=== PATIENT | female | born 1950 | race Caucasian/White ===

== ENCOUNTER 2018-02-16 06:52 | Emergency (ER) | payer OTHER ==
[~2018-02-16] VITALS: Ht 170.2 cm; Wt 88.9 kg
[2018-02-16] MEDS ORDERED: XANAX 0.5 MG0.5 MG PO (07:20)
[2018-02-16] MEDS ORDERED: CHLORTHALIDONE25 MG PO (07:20)
[2018-02-16] MEDS ORDERED: DOXEPIN 75 MG C75 MG PO (07:21)
[2018-02-16] MEDS ORDERED: LIPITOR40 MG PO (07:21)
[2018-02-16] MEDS ORDERED: ESCITALOPRAM OX20 MG PO (07:21)
[2018-02-16] MEDS ORDERED: SYNTHROID100 MC1 PO (07:22)
[2018-02-16 07:32] LABS: URINE BLOOD 3+ (Negative); URINE CLARITY CLOUDY; URINE COLOR RED; URINE GLUCOSE-RANDOM 1+ (Negative); URINE KETONES TRACE (Negative); URINE LEUKOCYTES-REFLEX TRACE (Negative); URINE PROTEIN 1+ (Negative); URINE SPECIFIC GRAVITY 1.025 (1.005-1.030); URINE UROBILINOGEN 0.2 E.U./dl (0.2-1.0)
[2018-02-16 07:34] LABS: ICTOTEST (BILI CONFIRMATORY) Negative (Negative); URINE BILIRUBIN 2+ (Negative); URINE NITRITE-REFLEX POSITIVE (Negative)
[2018-02-16 07:38] LABS: BACTERIA-REFLEX 1-9 Few /HPF (None Seen); CASTS None Seen /LPF (None Seen); MUCUS 0-3 Light strn/LPF (None Seen); SQUAMOUS 0-3 Few /LPF (0-3); URINE RBC >20 Many /HPF (0-2); URINE WBC-REFLEX 0-5 Rare /HPF (0-5)
[2018-02-16 07:39] LABS: CRYSTALS None Seen /LPF (None Seen)
[2018-02-16 07:39] LABS: ABSOLUTE BASOPHILS 0.1 thou/uL (0.0-0.2); ABSOLUTE LYMPHOCYTES 1.2 thou/uL (0.8-5.3); ABSOLUTE MONOCYTES 0.5 thou/uL (0.0-1.2); ABSOLUTE NEUTROPHILS 7.6 thou/uL (1.6-8.1); BASOPHILS 0.6 %; EOSINOPHILS 0.1 %; HEMATOCRIT 42.7 % (37.0-47.0); HEMOGLOBIN 13.9 gm/dL (12.0-15.0); LYMPHOCYTES 12.8 %; MCH 28.5 pg (26.0-34.0); MCHC 32.6 g/dL (28.0-37.0); MCV 87.4 fL (80.0-100.0); MONOCYTES 4.8 %; MPV 7.5 fl. (7.2-11.1); NUCLEATED RBCS 0 /100WBC; PLATELET COUNT* 281 thou/uL (150-400); POLYS 81.7 %; RBC 4.89 mil/uL (4.20-5.00); RDW-CV 14.4 % (10.5-14.5); WBC 9.3 thou/uL (4.0-11.0)
[2018-02-16 07:57] LABS: CALCIUM 8.4 mg/dL (8.5-10.1); CREATININE 0.7 mg/dL (0.6-1.3); POTASSIUM 3.4 mmol/L (3.5-5.1)
[2018-02-16 08:00] LABS: ALBUMIN 3.5 g/dL (3.4-5.0); TOTAL BILIRUBIN 0.6 mg/dL (<0.1-1.0); TOTAL PROTEIN 6.7 g/dL (6.4-8.2)
[2018-02-16] MEDS ORDERED: LEVAQUIN 500 M500 MG PO (08:23)
[2018-02-16 09:11] VITALS: BP 121/83
== END 2018-02-16 09:12 | disposition home or self-care (01) ==
LOC: M.ERS 06:52
PROVIDERS: Personal Emergency Response Attendant
DX: N39.0 Urinary tract infection, site not specified (principal); Z90.710 Acquired absence of both cervix and uterus; Z88.6 Allergy status to analgesic agent; Z88.5 Allergy status to narcotic agent; Z88.2 Allergy status to sulfonamides

== ENCOUNTER 2018-03-05 18:01 | Emergency (ER) | payer OTHER ==
[~2018-03-05] VITALS: Ht 170.2 cm; Wt 89.4 kg
[~2018-03-05 18:01] MED LIST: CHLORTHALIDONE25 MG PO; DOXEPIN 75 MG C75 MG PO; ESCITALOPRAM OX20 MG PO; LEVAQUIN 500 M500 MG PO; LIPITOR40 MG PO; SYNTHROID100 MC1 PO; XANAX 0.5 MG0.5 MG PO
[2018-03-05] MEDS ORDERED: XARELTO15 MG PO (18:15)
[2018-03-05 18:24] LABS: ABSOLUTE LYMPHOCYTES 1.5 thou/uL (0.8-5.3); ABSOLUTE MONOCYTES 0.5 thou/uL (0.0-1.2); ABSOLUTE NEUTROPHILS 5.6 thou/uL (1.6-8.1); BASOPHILS 0.5 %; HEMATOCRIT 40.9 % (37.0-47.0); HEMOGLOBIN 13.6 gm/dL (12.0-15.0); LYMPHOCYTES 20.1 %; MCH 28.6 pg (26.0-34.0); MCHC 33.2 g/dL (28.0-37.0); MCV 86.2 fL (80.0-100.0); MONOCYTES 6.1 %; MPV 7.4 fl. (7.2-11.1); NUCLEATED RBCS 0 /100WBC; PLATELET COUNT* 346 thou/uL (150-400); POLYS 73.3 %; RBC 4.75 mil/uL (4.20-5.00); RDW-CV 14.7 % (10.5-14.5); WBC 7.6 thou/uL (4.0-11.0)
[2018-03-05 18:38] LABS: ANION GAP 10 mmol/L (7-16); BUN 6 mg/dL (7-18); CALCIUM 9.8 mg/dL (8.5-10.1); CHLORIDE 106 mmol/L (98-107); CO2 25 mmol/L (21-32); CREATININE 0.8 mg/dL (0.6-1.3); GLUCOSE 134 mg/dL (70-99); POTASSIUM 3.9 mmol/L (3.5-5.1); SODIUM 141 mmol/L (136-145)
[2018-03-05 18:39] LABS: APTT 33.1 Seconds (25.0-31.3); INR 1.2; PROTIME 11.3 Seconds (9.20-11.50)
[2018-03-05 18:45] LABS: ALBUMIN 3.4 g/dL (3.4-5.0); ALKALINE PHOSPHATASE 90 U/L (46-116); SGOT 10 U/L (15-37); SGPT 15 U/L (30-65); TOTAL BILIRUBIN 0.4 mg/dL (<0.1-1.0); TOTAL PROTEIN 6.8 g/dL (6.4-8.2); TROPONIN-I LEVEL <0.06 ng/mL (<0.06)
[2018-03-05] MEDS ORDERED: ZOFRAN ODT4 MG PO (20:13)
[2018-03-05] MEDS ORDERED: CIPRO500 MG PO (20:13)
[2018-03-05 20:29] VITALS: BP 151/102
== END 2018-03-05 20:34 | disposition home or self-care (01) ==
LOC: M.ERS 18:01
PROVIDERS: Nurse Practitioner Family
DX: K52.9 Noninfective gastroenteritis and colitis, unspecified (principal); F32.9 Major depressive disorder, single episode, unspecified; K44.9 Diaphragmatic hernia without obstruction or gangrene; Z88.6 Allergy status to analgesic agent; Z88.5 Allergy status to narcotic agent; Z88.2 Allergy status to sulfonamides; Z90.710 Acquired absence of both cervix and uterus

== ENCOUNTER 2018-07-07 10:22 | Inpatient (IN) | payer OTHER ==
[~2018-07-07] VITALS: Ht 170.2 cm; Wt 94.8 kg
[~2018-07-07 10:22] MED LIST changes: +CIPRO500 MG PO; +XARELTO15 MG PO; +ZOFRAN ODT4 MG PO
[2018-07-07 10:44] VITALS: BP 99/64
[2018-07-07 11:37] LABS: HEMATOCRIT 32.2 % (37.0-47.0); HEMOGLOBIN 10.5 gm/dL (12.0-15.0); MCHC 32.5 g/dL (28.0-37.0); MCV 83.1 fL (80.0-100.0); MPV 7.9 fl. (7.2-11.1); NUCLEATED RBCS 0 /100WBC; PLATELET COUNT* 272 thou/uL (150-400); RBC 3.88 mil/uL (4.20-5.00); RDW-CV 14.4 % (10.5-14.5); WBC 11.8 thou/uL (4.0-11.0)
[2018-07-07 11:52] LABS: APTT 27.1 Seconds (25.0-31.3); INR 1.1; PROTIME 11.4 Seconds (9.20-11.50)
[2018-07-07 11:53] LABS: ANION GAP 10 mmol/L (7-16); BUN 10 mg/dL (7-18); CALCIUM 8.3 mg/dL (8.5-10.1); CHLORIDE 106 mmol/L (98-107); CO2 25 mmol/L (21-32); CREATININE 0.8 mg/dL (0.6-1.3); GLUCOSE 184 mg/dL (70-99); POTASSIUM 4.2 mmol/L (3.5-5.1); SODIUM 141 mmol/L (136-145)
[2018-07-07 12:00] LABS: ALBUMIN 2.9 g/dL (3.4-5.0); ALKALINE PHOSPHATASE 90 U/L (46-116); SGOT 16 U/L (15-37); SGPT 19 U/L (30-65); TOTAL BILIRUBIN 0.4 mg/dL (<0.1-1.0); TOTAL PROTEIN 5.8 g/dL (6.4-8.2); TROPONIN-I LEVEL <0.06 ng/mL (<0.06)
[2018-07-07 12:03] LABS: ABSOLUTE LYMPHOCYTES 0.4 thou/uL (0.8-5.3); ABSOLUTE MONOCYTES 0.1 thou/uL (0.0-1.2); ABSOLUTE NEUTROPHILS 11.3 thou/uL (1.6-8.1); PLATELET ESTIMATE ADEQUATE
[2018-07-07 16:59] VITALS: BP 95/58
[2018-07-07 17:10] VITALS: BP 115/70
--- NOTE | 2018-07-07 18:09 | EKG ---
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1950 Requested By: Lisbeth Cuba Order Number: [id number] MD: Logan Best Measurements Intervals [place] Rate: 90 P: 24 NH: 187 QRS: -14 QRSD: 114 T: 184 QT: 441 QTc: 540 Interpretive Statements Sinus rhythm Ventricular bigeminy Nonspecific repol abnormality, diffuse leads Compared to ECG 08/30/2007 13:49:38 Ventricular premature complex(es) now present Early repolarization now present ST (T wave) deviation no longer present Electronically Signed On 07-07-2018 18:09:26 SOFTWARE TOOLS DEVELOPER by Logan Best [email or web address] <ELECTRONICALLY SIGNED> By: Logan Best MD, FACC 07/07/18 1809 1123 1123 Logan Best MD, FACC /EPI
[2018-07-07 20:01] VITALS: BP 124/66
[2018-07-08 00:31] VITALS: BP 122/72
[2018-07-08 04:00] VITALS: BP 94/67
[2018-07-08 04:39] LABS: HEMATOCRIT 22.8 % (37.0-47.0); MCH 27.7 pg (26.0-34.0); MCHC 33.3 g/dL (28.0-37.0); MCV 83.2 fL (80.0-100.0); MPV 8.3 fl. (7.2-11.1); RBC 2.74 mil/uL (4.20-5.00); RDW-CV 14.3 % (10.5-14.5); WBC 4.6 thou/uL (4.0-11.0)
[2018-07-08 04:40] LABS: HEMOGLOBIN 7.6 gm/dL (12.0-15.0)
[2018-07-08 04:44] LABS: ALBUMIN 2.3 g/dL (3.4-5.0); CALCIUM 7.7 mg/dL (8.5-10.1); CREATININE 0.7 mg/dL (0.6-1.3); POTASSIUM 4.2 mmol/L (3.5-5.1); TOTAL BILIRUBIN 0.4 mg/dL (<0.1-1.0); TOTAL PROTEIN 4.7 g/dL (6.4-8.2)
[2018-07-08 08:00] VITALS: BP 106/68
[2018-07-08 13:01] LABS: URINE BILIRUBIN NEGATIVE (Negative); URINE BLOOD NEGATIVE (Negative); URINE CLARITY CLEAR; URINE COLOR YELLOW; URINE GLUCOSE-RANDOM NEGATIVE (Negative); URINE KETONES TRACE (Negative); URINE LEUKOCYTES-REFLEX NEGATIVE (Negative); URINE NITRITE-REFLEX NEGATIVE (Negative); URINE PROTEIN NEGATIVE (Negative); URINE SPECIFIC GRAVITY >= 1.030 (1.005-1.030); URINE UROBILINOGEN 0.2 E.U./dl (0.2-1.0)
[2018-07-08 16:34] VITALS: BP 110/69
[2018-07-08 19:30] VITALS: BP 112/69
[2018-07-09 04:15] LABS: HEMATOCRIT 22.2 % (37.0-47.0); HEMOGLOBIN 7.5 gm/dL (12.0-15.0); MCH 27.9 pg (26.0-34.0); MCHC 33.6 g/dL (28.0-37.0); MCV 83.1 fL (80.0-100.0); MPV 8.4 fl. (7.2-11.1); RBC 2.68 mil/uL (4.20-5.00); RDW-CV 14.1 % (10.5-14.5); WBC 5.6 thou/uL (4.0-11.0)
[2018-07-09 08:00] VITALS: BP 99/64
[2018-07-09 10:49] VITALS: BP 99/64
[2018-07-09] MEDS ORDERED: TYLENOL EXTRA500 MG PO (11:26)
[2018-07-09] MEDS ORDERED: IBUPROFEN 200200 M1 PO (11:28)
[2018-07-09 12:15] VITALS: BP 99/64
== END 2018-07-09 13:03 | disposition home or self-care (01) | DRG 813 ==
LOC: M.ERS 10:22 → M.TBA-ER 15:50 → M.ORTHSURG 15:50
PROVIDERS: Nurse Practitioner Family; ADMIT Internal Medicine
DX: D68.32 Hemorrhagic disorder due to extrinsic circulating anticoagulants (principal); E44.0 Moderate protein-calorie malnutrition; D62 Acute posthemorrhagic anemia; S30.0XXA Contusion of lower back and pelvis, initial encounter; Z90.710 Acquired absence of both cervix and uterus; Z86.718 Personal history of other venous thrombosis and embolism; Z90.49 Acquired absence of other specified parts of digestive tract; Z88.6 Allergy status to analgesic agent; Z88.2 Allergy status to sulfonamides; W10.1XXA Fall (on)(from) sidewalk curb, initial encounter; Y93.89 Activity, other specified; Y92.89 Other specified places as the place of occurrence of the external cause; Y99.8 Other external cause status; Z68.32 Body mass index [BMI] 32.0-32.9, adult

== ENCOUNTER 2019-04-23 12:15 | Inpatient (IN) | payer OTHER ==
[~2019-04-23] VITALS: Ht 170.2 cm; Wt 88.0 kg
--- NOTE | ~2019-04-23 | PROC ---
[address] [address] PROCEDURE REPORT Name: CHARANJIT WHITNEY Room: [address] IN .R.#: [id number] Admission: 04/23/19 Attend Phys: Arnold Mays MD Discharge: 04/25/19 Date of : 48 Report #: [id number] THIS REPORT FOR: //name// For GI report, please see the Provation report in Perceptive 7 content. By: 1551Medical Records Staff ENRICO /GERARDO
[~2019-04-23 12:15] MED LIST changes: +IBUPROFEN 200200 M1 PO; +TYLENOL EXTRA500 MG PO
[2019-04-23 12:17] VITALS: BP 152/81
[2019-04-23] MEDS ORDERED: DESVENLAFAXINE50 M2 PO (12:23)
[2019-04-23 12:34] LABS: ABSOLUTE LYMPHOCYTES 1.6 thou/uL (0.8-5.3); ABSOLUTE MONOCYTES 0.4 thou/uL (0.0-1.2); ABSOLUTE NEUTROPHILS 3.7 thou/uL (1.6-8.1); BASOPHILS 0.5 %; HEMATOCRIT 39.9 % (37.0-47.0); HEMOGLOBIN 13.2 gm/dL (12.0-15.0); LYMPHOCYTES 27.4 %; MCH 27.4 pg (26.0-34.0); MCHC 32.9 g/dL (28.0-37.0); MCV 83.1 fL (80.0-100.0); MONOCYTES 7.8 %; MPV 7.6 fl. (7.2-11.1); NUCLEATED RBCS 0 /100WBC; PLATELET COUNT* 281 thou/uL (150-400); POLYS 64.3 %; RBC 4.81 mil/uL (4.20-5.00); WBC 5.8 thou/uL (4.0-11.0)
[2019-04-23 12:43] LABS: ANION GAP 10 mmol/L (7-16); BUN 6 mg/dL (7-18); CALCIUM 8.6 mg/dL (8.5-10.1); CHLORIDE 106 mmol/L (98-107); CO2 23 mmol/L (21-32); CREATININE 0.8 mg/dL (0.6-1.3); GLUCOSE 121 mg/dL (70-99); POTASSIUM 3.7 mmol/L (3.5-5.1); SODIUM 139 mmol/L (136-145)
[2019-04-23 12:53] LABS: ALBUMIN 3.4 g/dL (3.4-5.0); ALKALINE PHOSPHATASE 102 U/L (46-116); LIPASE 134 U/L (73-393); MAGNESIUM 1.8 mg/dL (1.8-2.4); NT-PRO BRAIN NAT PEPTIDE 243 pg/mL (<300); SGOT 17 U/L (15-37); SGPT 22 U/L (30-65); TOTAL BILIRUBIN 0.4 mg/dL (<0.1-1.0); TOTAL PROTEIN 6.9 g/dL (6.4-8.2); TROPONIN-I LEVEL <0.06 ng/mL (<0.06)
[2019-04-23 14:15] VITALS: BP 120/60
[2019-04-23 15:00] VITALS: BP 116/81
[2019-04-23 16:00] VITALS: BP 119/79
[2019-04-23 19:40] VITALS: BP 133/83
[2019-04-24] VITALS: BP 98/57
[2019-04-24 04:00] VITALS: BP 131/81
[2019-04-24 04:21] LABS: ABSOLUTE LYMPHOCYTES 1.7 thou/uL (0.8-5.3); ABSOLUTE MONOCYTES 0.3 thou/uL (0.0-1.2); ABSOLUTE NEUTROPHILS 2.5 thou/uL (1.6-8.1); BASOPHILS 0.2 %; EOSINOPHILS 0.1 %; HEMOGLOBIN 12.6 gm/dL (12.0-15.0); LYMPHOCYTES 38.1 %; MCH 27.7 pg (26.0-34.0); MCHC 33.1 g/dL (28.0-37.0); MCV 83.5 fL (80.0-100.0); MONOCYTES 7.5 %; MPV 7.8 fl. (7.2-11.1); NUCLEATED RBCS 0 /100WBC; PLATELET COUNT* 244 thou/uL (150-400); POLYS 54.1 %; RBC 4.55 mil/uL (4.20-5.00); RDW-CV 15.1 % (10.5-14.5); WBC 4.5 thou/uL (4.0-11.0)
[2019-04-24 04:33] LABS: CALCIUM 8.6 mg/dL (8.5-10.1); CREATININE 0.7 mg/dL (0.6-1.3); POTASSIUM 4.2 mmol/L (3.5-5.1)
[2019-04-24 08:00] VITALS: BP 122/81
[2019-04-24 12:00] VITALS: BP 133/91
[2019-04-24 13:58] LABS: HEMATOCRIT 38.1 % (37.0-47.0); HEMOGLOBIN 12.2 gm/dL (12.0-15.0); MCH 26.9 pg (26.0-34.0); MCV 84.1 fL (80.0-100.0); RBC 4.53 mil/uL (4.20-5.00); RDW-CV 15.1 % (10.5-14.5); WBC 4.6 thou/uL (4.0-11.0)
[2019-04-24 16:00] VITALS: BP 117/77
--- NOTE | 2019-04-24 16:55 | EKG ---
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: : 1950 Requested By: Javier Pinedo Order Number: [id number] MD: Logan Best Measurements Intervals [place] Rate: 78 P: 35 ID: 189 QRS: -19 QRSD: 112 T: 32 QT: 412 QTc: 470 Interpretive Statements Sinus rhythm Ventricular bigeminy Borderline T abnormalities, anterior leads Borderline ST elevation, inferior leads Compared to ECG 07/07/2018 11:23:06 T-wave abnormality now present ST (T wave) deviation now present Early repolarization no longer present Electronically Signed On 04-24-2019 16:55:07 CDT by Logan Best [email or web address] <ELECTRONICALLY SIGNED> By: Logan Best MD, FACC 04/24/19 1655 1218 1218 Logan Best MD, FACC /EPI
[2019-04-24 20:00] VITALS: BP 124/80
[2019-04-25] VITALS: BP 105/57
[2019-04-25 04:00] VITALS: BP 127/74
[2019-04-25 08:00] VITALS: BP 134/90
[2019-04-25] MEDS ORDERED: PANTOPRAZOLE SO40 M1 PO (10:22)
[2019-04-25 13:27] VITALS: BP 134/90
--- NOTE | 2019-04-25 16:15 | EKG ---
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 : 1950 Requested By: Arnold Mays Order Number: [id number] MD: Oscar Artis Measurements Intervals [place] Rate: 62 P: 36 HI: 206 QRS: -8 QRSD: 114 T: 34 QT: 467 QTc: 475 Interpretive Statements Sinus rhythm Borderline intraventricular conduction delay Compared to ECG 04/23/2019 12:18:35 Ventricular premature complex(es) no longer present T-wave abnormality no longer present ST (T wave) deviation no longer present Electronically Signed On 04-25-2019 16:14:49 CDT by Oscar Artis [email or web address] <ELECTRONICALLY SIGNED> By: Oscar Artis MD, [facility] 04/25/19 1614 0437 0437 Oscar Artis MD, [facility] /EPI
--- NOTE | 2019-04-28 19:17 | CON ---
[address] [address] CONSULTATION Name: CHARANJIT WHITNEY Room: [address] IN M.R.#: [id number] Admission: 04/23/19 Attend Phys: Arnold Mays MD Discharge: 04/25/19 Date of : 48 Report #: [id number] THIS REPORT FOR: //name// CC: Arnold Weinberg HISTORY OF PRESENT ILLNESS: Pleasant 68-year-old female with past medical history significant for hyperlipidemia, anxiety, and hypothyroidism, who is presenting for evaluation of chest pain and pressure. Last night, the patient felt tightness in her chest, inability to swallow liquids and solids, and she thought she was having a heart attack and presented to the hospital. Here, she has been evaluated and an NH has been ruled out. The GI service has been consulted for evaluation of noncardiac chest pain. The patient does report a longstanding history of reflux disease and intermittent episodes of food bolus impactions. Her last impaction happened several years ago, at which time she had an EGD and esophageal dilation performed. The patient does report about 2-3 days per day having troublesome reflux symptoms associated with nausea. She denies any vomiting, weight loss, hematemesis, or other alarm symptoms. PAST MEDICAL HISTORY: Hypothyroidism, hyperlipidemia, anxiety. PAST SURGICAL HISTORY: The patient has a remote history of cholecystectomy and in 1998 had a total abdominal hysterectomy. FAMILY HISTORY: The patient's mother had breast cancer. Otherwise, there is no history of colorectal cancer or Lino-related neoplasia. SOCIAL HISTORY: The patient denies smoking, alcohol, or recreational drug use. PHYSICAL EXAMINATION: VITAL SIGNS: Temperature 36.7, pulse rate 66, respirations 16, blood pressure 122/81, pulse ox 96% on room air. GENERAL: The patient is alert, awake, oriented x 3. HEENT: Pupils are equal, round, reactive to light and accommodation. Mucous membranes are moist. There is no congestion. LUNGS: Clear to auscultation bilaterally. CARDIOVASCULAR: Rate and rhythm regular. S1, S2 present. ABDOMEN: Soft. There is no distention, guarding, or rigidity. EXTREMITIES: Warm, well perfused. There is no edema. SKIN: Warm and dry. LABORATORY DATA: Hemoglobin 12.6, hematocrit 38.0, WBC count 4.5, platelet count 244. Sodium 144, potassium ____, bicarbonate 28, BUN 4, creatinine 0.7. ASSESSMENT AND PLAN: Pleasant 68-year-old female, presenting with chest pressure and prior episodes of food impaction. [place] [address] CONSULTATION Name: STEWART WHITNEYBETZY Whitehead Room: [address] IN M.R.#: [id number] Admission: 04/23/19 Attend Phys: Arnold Mays MD Discharge: 04/25/19 Date of : 48 Report #: [id number] esophagogastroduodenoscopy for further evaluation of dysphagia. Further recommendations will be based on results of esophagogastroduodenoscopy. <ELECTRONICALLY SIGNED> By: Eladio Anna MD 04/28/19 1917 1224 1247Eladio Anna MD /nt
[2019-05-25] MEDS ORDERED: DOXEPIN HCL100 MG PO (14:34)
[2019-05-25] MEDS ORDERED: OMEPRAZOLE40 MG PO (14:35)
[2019-05-25] MEDS ORDERED: LEXAPRO20 MG PO (14:35)
== END 2019-04-25 14:56 | disposition home or self-care (01) | DRG 392 ==
LOC: M.ERS 12:15 → M.TBA-ER 13:46 → M.2W 13:46
PROVIDERS: Emergency Medicine Emergency Medical Services; Internal Medicine Gastroenterology; ADMIT Internal Medicine
PROC: 0DJ08ZZ Inspection of Upper Intestinal Tract, Via Natural or Artificial Opening Endoscopic (ICD-10-PCS; principal; 2019-04-25)
DX: K21.9 Gastro-esophageal reflux disease without esophagitis (principal); K44.9 Diaphragmatic hernia without obstruction or gangrene; R13.10 Dysphagia, unspecified; E03.9 Hypothyroidism, unspecified; E78.5 Hyperlipidemia, unspecified; F41.9 Anxiety disorder, unspecified; Z79.899 Other long term (current) drug therapy; Z79.1 Long term (current) use of non-steroidal anti-inflammatories (NSAID); Z88.5 Allergy status to narcotic agent; Z88.2 Allergy status to sulfonamides; Z90.710 Acquired absence of both cervix and uterus; Z80.3 Family history of malignant neoplasm of breast

== ENCOUNTER → 2019-05-23 | Outpatient (CLI) | payer OTHER ==
[~2019-05-23] MED LIST changes: +AUGMENTIN 875-1 EACH PO; +DESVENLAFAXINE50 M2 PO; +DOXEPIN HCL100 MG PO; +LEXAPRO20 MG PO; +NORCO 5-325 TA1 EAC1 PO; +OMEPRAZOLE40 MG PO; +PANTOPRAZOLE SO40 M1 PO; +ZOFRAN4 MG PO
== END ==
LOC: M.RAD 09:55
DX: K21.9 Gastro-esophageal reflux disease without esophagitis (principal); K44.9 Diaphragmatic hernia without obstruction or gangrene

== ENCOUNTER 2019-06-01 05:57 | Inpatient (IN) | payer OTHER ==
[~2019-06-01] VITALS: Ht 170.2 cm; Wt 86.6 kg
--- NOTE | ~2019-06-01 | OP ---
[address] [address] OPERATIVE REPORT Name: CHARANJIT WHITNEY Room: [address] IN .R.#: [id number] Admission: 06/02/19 Attend Phys: Conrad Lima MD Discharge: Date of : 48 Report #: [id number] THIS REPORT FOR: //name// CC: Cinthia Lima DATE OF SERVICE: 06/02/2019 PREOPERATIVE DIAGNOSES: 1. Large paraesophageal hernia. 2. Umbilical hernia. POSTOPERATIVE DIAGNOSES: 1. Large paraesophageal hernia. 2. Umbilical hernia. OPERATIVE PROCEDURE DONE: 1. Laparoscopic repair of paraesophageal hernia. 2. Partial Toupet fundoplication. 3. Laparoscopic repair of umbilical hernia with mesh. OPERATING SURGEON: Conrad Lima MD INDICATIONS FOR THE PROCEDURE: The patient is a 68-year-old female who presented with complaints of severe refractory reflux symptoms with features of dysphagia that she has been having on and off for many months. The patient had an upper GI endoscopy that showed a large paraesophageal hernia. The patient also has had CT scans done in the past and upper GI contrast study again showed a large paraesophageal hernia. The patient was advised laparoscopic repair of the same with fundoplication. The patient was also noted to have an umbilical hernia. The patient advised repair of the same. DESCRIPTION OF PROCEDURE: After explaining to the patient in detail and informed consent was obtained, the patient was identified in the preoperative holding area. The patient was transferred to the operating room and was placed in supine position. Sequential compressive devices were placed for DVT prophylaxis. Preoperative antibiotics were given. After induction of anesthesia, the abdomen was prepped and draped in a sterile fashion. Through a left upper quadrant 1 cm incision and using Optiview technique, peritoneal cavity was entered and pneumoperitoneum was created. Thereafter, under direct vision, another 5 mm trocar was placed in the left mid abdomen, another 12 mm trocar was placed in the right mid abdomen, another 5 mm trocar was placed in the right subcostal region and through a 1 cm incision in the epigastrium. A Dimas retractor was introduced and the left lobe of the liver was retracted. On initial inspection, the patient was noted to have nearly 70-80% [place] [address] OPERATIVE REPORT Name: CHARANJIT WHITNEY BRENT Room: [address] IN [facility]#: [id number] Admission: 06/02/19 Attend Phys: Conrad Lima MD Discharge: Date of : 48 Report #: [id number] stomach within the paraesophageal hernia. Using pars flaccida technique, the right earl was identified. The sac was dissected off the right earl. This was gently dissected off using sharp and blunt dissection, continued dissection anteriorly. The phrenoesophageal membrane was divided anteriorly and I continued dissection along the left earl. Posterior dissection at this point was difficult, therefore I took down the short gastric vessels using EnSeal. The gastrophrenic ligament was divided. The posterior attachments of the stomach and the pancreas were released and I did a posterior dissection. After doing a circumferential dissection, I continued to mobilize the sac superiorly and I was finally able to entirely reduce the sac and to have adequate length on the esophagus within the abdomen. The sac was then transected using EnSeal. A 36-Zamb[place] Hurst bougie was then introduced into the stomach. A posterior cruroplasty was then performed with a fmcylb-sh-kodfw Ethibond suture. Another etzebc-nb-hduqf Ethibond suture was placed anteriorly, care was taken not to tighten the crura too much. I then brought the fundus of the stomach through a retrogastric window to the right side and a shoeshine maneuver was performed. I then placed three interrupted gastroesophageal sutures on the right side and three on the left side to create a 270-degree wrap. The sutures were placed at 1 cm intervals. At this point, the first bougie was then removed. I then placed two sutures on the crura and wrap, pexy and prevent any recurrent herniation. ____ introduced about 10 mL of lidocaine and Marcaine mix onto the left hemidiaphragm. I then placed an additional 5 mm trocar in the left lower quadrant. On initial inspection, the patient was noted to have 1.5 cm size umbilical hernia with mostly preperitoneal fat that was herniated through this, this was gently dissected off. I then chose a 11 cm Ventralight mesh, which was hydrated, suture was then placed on the adherent surface of the mesh in the center. Mesh was then anchored on to the anterior abdominal wall using the Fenwick-Michael suture. SecureStraps were placed at 1 cm intervals circumferentially to tack the mesh onto the anterior abdominal wall. Absolute hemostasis was ensured. The Dimas retractor was removed. The sac was removed and was sent for histopathology. The abdomen was then deflated. The 12 mm port incision was closed with 0 Vicryl for the fascia. Skin was closed with 4-0 Monocryl for the incisions. Dermabond was applied. The patient was stable at the end of the procedure. The patient was awoken from anesthesia and was transferred to the recovery room in stable condition. ESTIMATED BLOOD LOSS: Approximately 50 mL. CONDITION THE PATIENT: Stable. FLUIDS GIVEN: Per anesthesia notes. SPECIMEN SENT: Excised sac. COMPLICATIONS: None. [facility] [address] [place] [address] OPERATIVE REPORT Name: CHARANJIT WHITNEY Room: [facility] IN ..#: [id number] Admission: 06/02/19 Attend Phys: Conrad Lima MD Discharge: Date of : 48 Report #: [id number] ANESTHESIA: General anesthesia. By: 0933 1300Conrad Lima MD /nt
--- NOTE | ~2019-06-01 | H ---
[address] [address] HISTORY AND PHYSICAL Name: CHARANJIT WHITNEY Room: [address] IN ..#: [id number] Admission: 06/02/19 Attend Phys: Conrad Lima MD Discharge: 06/08/19 Date of : 48 Report #: [id number] THIS REPORT FOR: //name// Please refer to the History and Physical performed in the physician's office. By: 0639Medical Records Staff ENRICO /GERARDO
[~2019-06-01 05:57] MED LIST changes: -AUGMENTIN 875-1 EACH PO; -NORCO 5-325 TA1 EAC1 PO; -ZOFRAN4 MG PO
[2019-06-01 06:28] LABS: HEMATOCRIT 41.5 % (37.0-47.0); HEMOGLOBIN 13.8 gm/dL (12.0-15.0); MCH 27.8 pg (26.0-34.0); MCHC 33.2 g/dL (28.0-37.0); MCV 83.7 fL (80.0-100.0); MPV 7.6 fl. (7.2-11.1); RBC 4.96 mil/uL (4.20-5.00); RDW-CV 15.8 % (10.5-14.5); WBC 4.8 thou/uL (4.0-11.0)
[2019-06-01 06:48] LABS: CALCIUM 8.6 mg/dL (8.5-10.1); CREATININE 0.7 mg/dL (0.6-1.3); POTASSIUM 4.3 mmol/L (3.5-5.1)
[2019-06-01 06:53] LABS: ALBUMIN 3.7 g/dL (3.4-5.0); TOTAL BILIRUBIN 0.6 mg/dL (<0.1-1.0); TOTAL PROTEIN 6.6 g/dL (6.4-8.2)
[2019-06-01 14:00] VITALS: BP 128/72
--- NOTE | 2019-06-01 17:48 | NUR ---
PT ARRIVED TO FLOOR AT 1400 FROM PACU. PAIN CONTROLLED. IV PATENT. NAUSEA CONTROLLED. ON CONTINUOUS PULSE OX WITH HIGH FLOW NC AT 45% AND 35L. O2 STAT IS AT 90-94L. TRANSDERM PATCH BEHIND LEFT EAR. TOLERATING CLEAR LIQUIDS. VITALS STABLE. HAS NOT BEEN UP SINCE ARRIVED TO FLOOR. FAMILY AT BEDSIDE. CALL LIGHT WITHIN REACH. WILL CONTINUE TO MONITOR.
[2019-06-01 20:00] VITALS: BP 151/83
[2019-06-02 00:06] LABS: URINE BILIRUBIN NEGATIVE (Negative); URINE BLOOD NEGATIVE (Negative); URINE CLARITY CLEAR; URINE COLOR YELLOW; URINE GLUCOSE-RANDOM 1+ (Negative); URINE KETONES NEGATIVE (Negative); URINE LEUKOCYTES-REFLEX NEGATIVE (Negative); URINE NITRITE-REFLEX NEGATIVE (Negative); URINE PROTEIN NEGATIVE (Negative); URINE SPECIFIC GRAVITY 1.015 (1.005-1.030); URINE UROBILINOGEN 0.2 E.U./dl (0.2-1.0)
[2019-06-02 00:20] VITALS: BP 140/76
[2019-06-02 04:08] VITALS: BP 118/73
[2019-06-02 06:00] VITALS: BP 139/81
--- NOTE | 2019-06-02 06:47 | NUR ---
Oriented x 3 but has been forgetful and confused also. Lapsites x 5 to abdomen are intact approximated w/dermabond. She has had difficulty keeping her O2 sat up in adequate range. She is wearing a heated hi-flow canula at 25 liters. She has been on a continuous pulse ox and it has alarmed frequently. She had arrived to the floor at 1400 yesterday from PACU and had not voided at 2300. She was bladderscanned and it read 999mls. Also she was concerned b/c her home meds were not ordered, Dr Padgett did order her meds. She had ramos cath placed with no difficulty and she had a large amount of urine output this shift. UA was sent when it was placed and it looks good. She did attempt to get out of bed and did pull apart the ramos cath and was trying to get out of bed. I did get in the room before she got up but she seemed confused also earlier she had got up without assist and had pulled the pulse ox finger probe apart. She has needed reminding to keep her nasal canula in.
[2019-06-02 10:15] VITALS: BP 140/82
--- NOTE | 2019-06-02 15:30 | NUR ---
SPOKE WITH PT.AND DAUGHTER. EXPLAINED R.T.TESTING TO SEE IF SHE WOULD NEED HOME O2. TOOK OFF PTS. O2, PER R.T.REQUEST. TOLD PT.IF SHE GOT SHORT OF AIR BEFORE R.T.CAME TO DO TESTING, TO CALL FOR NURSE. SHE SAID SHE NORMALLY LIVES BY HERSELF AND IS INDEPENDENT. NO USE OF DME OR HOME HEALTH.
[2019-06-02 16:12] VITALS: BP 145/87
--- NOTE | 2019-06-02 19:00 | NUR ---
PATIENT ANXIOUS AT TIMES THRU SHIFT. RESPIRATORY THERAPY CONSULTED FOR WEANING OF O2 AND REST/WALK TESTING. PATIENT CURRENTLY ON 4L/NC. SAT 86% ON 3L/NC. RESP THERAPY NOTIFIED OF INCREASE IN O2 NEED AT THIS TIME. AMB W/ SBA. C/O NAUSEA THIS AFTERNOON, SEE MAR. IV SL, SITE NOTED WNL. CURRENTLY RESTING IN BED. CALL LIGHT IN REACH. HRLY ROUNDS DONE. ~TJRN
[2019-06-02 21:40] VITALS: BP 136/87
[2019-06-03] VITALS (7 sets, daily range): BP systolic 93–113; BP diastolic 58–72
--- NOTE | 2019-06-03 05:18 | NUR ---
PT ON 3-4L O2 BY NC. MAINTAINED ALERT AND ORIENTED THIS SHIFT. TOLERATING BREATHING TREATMENT. DENIED PAIN. PT REQUESTED XANAX FOR ANXIETY. ZOFRAN GIVEN ONCE FOR NAUSEA. SLEEPING ON HOURLY ROUNDINGS. WILL CONTINUE TO MONITOR.
[2019-06-03 08:16] LABS: BE 3.5 mmol/L (-2 to +3); PCO2 26.2 mmHg (35.0-45.0); pH 7.581 (7.340-7.450)
[2019-06-03 08:22] LABS: PO2 38.2 mmHg (75.0-100.0)
[2019-06-03 08:55] LABS: ABSOLUTE LYMPHOCYTES 1.5 thou/uL (0.8-5.3); ABSOLUTE MONOCYTES 0.7 thou/uL (0.0-1.2); HEMOGLOBIN 13.8 gm/dL (12.0-15.0); MPV 8.1 fl. (7.2-11.1); NUCLEATED RBCS 0 /100WBC; PLATELET COUNT* 303 thou/uL (150-400)
[2019-06-03 08:57] LABS: ABSOLUTE BASOPHILS 0.1 thou/uL (0.0-0.2); ABSOLUTE NEUTROPHILS 7.7 thou/uL (1.6-8.1); BASOPHILS 0.7 %; LYMPHOCYTES 14.7 %; MCH 27.7 pg (26.0-34.0); MCHC 32.9 g/dL (28.0-37.0); MCV 84.4 fL (80.0-100.0); POLYS 77.6 %; RBC 4.98 mil/uL (4.20-5.00); RDW-CV 16.2 % (10.5-14.5); WBC 9.9 thou/uL (4.0-11.0)
--- NOTE | 2019-06-03 09:00 | NUR ---
[id number]: RESPIRATORY THERAPY IN WITH PATIENT, SATS DECREASING MID 80s, HEATED HI FLOW/NC APPLIED. PATIENT ALERT AND ORIENTED, DENIES PAIN AT THIS TIME. ABD INC AREAS NOTED CLOSED, WELL APPROX, NO DRNG/S/S INFECTION NOTED. PATIENT STATES HAVING BM YESTERDAY, STATES PASSING GAS, ABD NOTED LESS DISTENDED TODAY. DR NOTIFIED OF PATIENT CONDITION, ORDERS REC'D. 2ND IV PLACED PER FINISHING TUNNEL OPERATOR. PATIENT TRANSFERRED OFF UNIT PER BED W/ NURSING AND RESPIRATORY STAFF PRESENT, BIPAP ON AT THIS TIME. BELONGINGS W/ NURSING STAFF ON CART. REPORT TO ICU GIVEN. ~TJRN
[2019-06-03 09:04] LABS: CALCIUM 9.1 mg/dL (8.5-10.1); CREATININE 0.9 mg/dL (0.6-1.3)
[2019-06-03 09:07] LABS: ALBUMIN 3.3 g/dL (3.4-5.0); MAGNESIUM 1.9 mg/dL (1.8-2.4); PHOSPHORUS* 2.2 mg/dL (2.5-4.9)
[2019-06-03 13:43] LABS: BE 0.4 mmol/L (-2 to +3); PCO2 37.5 mmHg (35.0-45.0); PO2 77.5 mmHg (75.0-100.0); pH 7.431 (7.340-7.450)
--- NOTE | 2019-06-03 14:52 | NUR ---
ICU rounds: Pt up from j/s. On bipap, trying to wean back to NC. Admitted for hernia repair. Up with assist of 1.
--- NOTE | 2019-06-03 16:35 | NUR ---
RECIEVED REPORT FROM CHALO AND ASSUMED CARE OF PT @ 6307.PT IS A/O X4,VSS,PT ON BIPAP.CTA COMPLETED.NO C/O PAIN.IV ANTIBIOTICS GIVEN.PT REMAINS NPO EXCEPT WITH MEDICATIONS WHILE ON THE BIPAP.PT INFORMED OF THE PLAN OF CARE AND COMMUNICATES UNDERSTANDING.PT LEFT RESTING IN BED WITH CALL LIGHT AND FALL PRECAUTIONS IN PLACE.FAMILY AT BEDSIDE.WILL CONTINUE TO MONITOR FOR DURATION OF SHIFT.
--- NOTE | 2019-06-03 17:06 | PATH ---
[facility] [address] [place] [address] PATHOLOGY RPT PROCEDURE Name: CHELOCHARANJIT JO Room: [address] IN .R.#: [id number] Admission: 06/02/19 Date of : 48 Discharge: Report #: [id number] Path Case #: [id number] [facility] Accession Number: [id number] . 01 Material submitted: . hernia - HERNIA SAC . 01 Clinical history: . Para esophageal hernia, umbilical hernia . 02 Diagnosis: "Paraesophageal hernia", removal: - Hernia sac. - Approximately three lymph nodes with no evidence of carcinoma. (SKM/db; 06/03/2019) LBQ 06/03/2019 1107 Local . 02 Electronically signed: . George Crooks MD, Pathologist NPI- [id number] . 01 Gross description: . The specimen is received in formalin labeled "Charanjit Alfaro, hernia sac". The specimen source is not listed on the container. The pre-operative diagnosis is listed on the requisition as "para esophageal hernia, umbilical hernia". The specimen source is confirmed with the provider as "paraesophageal hernia". Received are two irregular segments of yellow, lobulated adipose tissue admixed with dusky ovalles-prasad fibromembranous tissue measuring 3.5 x 2.9 x 1.2 cm and 12.5 x 7.0 x 1.8 cm in greatest dimensions. Serial sectioning reveals pale yellow to dusky ovalles-prasad and extensively hemorrhagic cut surfaces. An area of firm, pale prasad fibrous tissue is noted upon sectioning, measuring 0.5 x 0.5 x 0.4 cm. Finish Specialist sections are submitted in cassettes A1 and A2, with the fibrous tissue in A2. (DAC; 06/02/2019) XDC/XDC 06/03/2019 1105 Local . 02 Pathologist provided ICD-10: K44.9 . 02 CPT . 987591 Specimen Comment: A courtesy copy of this report has been sent to [phone] Specimen Comment: [id number] Specimen Comment: Report sent to / DR FAUST Performed at: [address] [place] [address] PATHOLOGY RPT PROCEDURE Name: CHARANJIT ALFARO BRENT Room: [address] ADM IN .R.#: [id number] Admission: 06/02/19 Date of : 48 Discharge: Report #: [id number] Path Case #: [id number] [address] [facility] [address], [place] [id number] MD Hammad Parker MD Phone: [phone] Performed at: 02 [facility] [address], [place], [place] [id number] MD Bro Porter MD Phone: [phone]
--- NOTE | 2019-06-04 00:20 | NUR ---
PATIENT ATTEMPTED TO CLIMB OUT OF BED WHILE ON BIPAP WITHOUT ASSISTANCE. PATIENT IS CONFUSED. QUOTED SAYING "I'M JUST GOING TO MY ROOM" "I'M AT HOME RIGHT NOW" "HOME IS WHEREVER I DECIDE IT IS". PATIENT WAS REDIRECTED TO THE BED BUT REMAINS CONFUSED AND IS NOW AGITATED SHE CANNOT "GO WHEREVER" SHE WANTS TO. BED ALARM ON AND FALL PRECAUTIONS IN PLACE.
--- NOTE | 2019-06-04 01:38 | NUR ---
PATIENT HAS BECOME INCREASINGLY CONFUSED AND AGITATED. SECURITY WAS CALLED TO ASSIST WITH THE PATIENT, NO INTERVENTION FROM SECURITY WAS REQUIRED. AT THE PATIENT'S REQUEST, DAUGHTER RAUL WAS CALLED. PATIENT'S DAUGHTER IS NOW AT THE BEDSIDE AND IS ASSISTING WITH CALMING THE PATIENT DOWN. PAGE SENT TO HOG CUTTER PHYSICIAN FOR ANXIETY MEDICATION. AWAITING CALLBACK.
--- NOTE | 2019-06-04 06:20 | NUR ---
ASSESSMENTS CHARTED. SEE PREVIOUS NOTES FOR INCIDENTS WITH THE PATIENT. PATIENT NOW RESTING PEACEFULLY. PATIENT'S DAUGHTER LEFT UNIT AT 0415. BIPAP STILL IN PLACE, TITRATED O2 DOWN TO 80% THIS SHIFT. AFTER ATIVAN ADMINISTRATION, NO OTHER EVENTS THIS SHIFT. PATIENT IS ABLE TO GET UP TO THE COMMODE FOR TOILETING.
[2019-06-04 08:41] LABS: BE 0.6 mmol/L (-2 to +3); PCO2 24.4 mmHg (35.0-45.0); pH 7.559 (7.340-7.450)
[2019-06-04 08:46] LABS: PO2 54.7 mmHg (75.0-100.0)
--- NOTE | 2019-06-04 17:43 | NUR ---
PATIENT UP FOR MEAL CONTINUING INCENTIVE SPIROMETRY WITH FERVER. TAKING PO WELL VOIDING IN COMMODE. REMAINS ON 10 LITERS O2. PROGRESSING.
[2019-06-04 19:01] VITALS: BP 127/90
[2019-06-04 20:01] VITALS: BP 147/90
[2019-06-04 21:00] VITALS: BP 137/80
[2019-06-04 22:00] VITALS: BP 137/88
[2019-06-04 23:00] VITALS: BP 123/73
[2019-06-05] VITALS (12 sets, daily range): BP systolic 84–141; BP diastolic 46–94
[2019-06-05 05:32] LABS: ABSOLUTE LYMPHOCYTES 1.8 thou/uL (0.8-5.3); ABSOLUTE MONOCYTES 0.6 thou/uL (0.0-1.2); ABSOLUTE NEUTROPHILS 5.2 thou/uL (1.6-8.1); BASOPHILS 0.3 %; EOSINOPHILS 0.1 %; HEMATOCRIT 34.9 % (37.0-47.0); LYMPHOCYTES 23.5 %; MCH 27.8 pg (26.0-34.0); MCHC 32.8 g/dL (28.0-37.0); MCV 84.5 fL (80.0-100.0); MONOCYTES 7.4 %; MPV 7.9 fl. (7.2-11.1); NUCLEATED RBCS 0 /100WBC; PLATELET COUNT* 233 thou/uL (150-400); POLYS 68.7 %; RBC 4.13 mil/uL (4.20-5.00); RDW-CV 16.1 % (10.5-14.5); WBC 7.5 thou/uL (4.0-11.0)
[2019-06-05 06:03] LABS: ALBUMIN 2.7 g/dL (3.4-5.0); CALCIUM 8.6 mg/dL (8.5-10.1); CREATININE 1.1 mg/dL (0.6-1.3); MAGNESIUM 1.9 mg/dL (1.8-2.4); PHOSPHORUS* 4.4 mg/dL (2.5-4.9); POTASSIUM 3.1 mmol/L (3.5-5.1)
[2019-06-05 06:12] LABS: HEMOGLOBIN 11.5 gm/dL (12.0-15.0)
--- NOTE | 2019-06-05 06:27 | NUR ---
PATIENT AMBULATING WELL IN THE ROOM. WENT BACK ON BIPAP FOR SLEEP. O2 ON BIPAP TITRATED DOWN TO 45%, SATURATING WELL. PATIENT PLEASANT AND COOPERATIVE THIS SHIFT. DAUGHTER IS AT THE BEDSIDE WITH THE PATIENT. CONTINUING ICU CARE FOR ONE MORE DAY PER SURGERY. NO SIGNIFICANT EVENTS THIS SHIFT. WCTM.
[2019-06-05 08:45] LABS: BE 0.5 mmol/L (-2 to +3); PCO2 30.3 mmHg (35.0-45.0); pH 7.495 (7.340-7.450)
[2019-06-05 08:48] LABS: PO2 49.7 mmHg (75.0-100.0)
--- NOTE | 2019-06-05 11:10 | CON ---
[address] [address] CONSULTATION Name: CHELOCHARANJIT BRENT Room: [address] ADM IN .R.#: [id number] Admission: 06/02/19 Attend Phys: Conrad Lima MD Discharge: Date of : 48 Report #: [id number] THIS REPORT FOR: //name// CC: Cinthia Lima DATE OF SERVICE: 06/04/2019 HISTORY OF PRESENT ILLNESS: The patient is a 68-year-old single white female who I was asked to see in the hospital after she was noted to have PVCs. The history is obtained from the patient. There are no family members available. The patient states she has a history of mitral valve prolapse. She has been seen by Dr. Mello in the [facility]iology [facility] at [place] in the past. She states last year, Dr. Mello performed a repeat echocardiogram and said there was no difference in her mitral valve prolapse and she would not have to have an echocardiogram done for the next couple of years. The patient is not very active at this time. However, she denies history of chest pain, shortness of breath, palpitation, syncope. The patient has a lot of history of indigestion and GERD. She was admitted here to [place] 3 days ago and underwent repair of a hiatal hernia. After surgery, she has been noted to be hypoxic and required breathing treatments. On monitor, she was noted to have frequent PVCs. Cardiology consultation was requested. PAST MEDICAL HISTORY: Significant for cholecystectomy, hysterectomy, appendectomy, breast biopsy, vein stripping. She has a history of hyperlipidemia. No history of diabetes and hypertension. MEDICATIONS: Include statin drug, Synthroid, Xanax. ALLERGIES: SHE HAS AN ALLERGY TO SULFA DRUGS. FAMILY HISTORY: Father had coronary artery bypass surgery. SOCIAL HISTORY: She is in the past. She is now , lives here in [place], retired at this time. No smoking or alcohol abuse. REVIEW OF SYSTEMS: She has had no history of stroke, asthma, peptic ulcer disease, liver disease, kidney disease, cancer, chronic skin condition. PHYSICAL EXAMINATION: GENERAL: Revealed elderly female lying in bed. She appeared in no distress. VITAL SIGNS: She had a blood pressure of 110/70, pulse is 80. She is afebrile. HEENT: She was anicteric. Conjunctivae pink. Mucous membranes moist. NECK: Veins nondistended. No carotid bruits. Neck supple. CHEST: [place] [address] CONSULTATION Name: CHARANJIT WHITNEY Room: [address] IN [facility]#: [id number] Admission: 06/02/19 Attend Phys: Conrad Lima MD Discharge: Date of : 48 Report #: [id number] CARDIOVASCULAR: Regular rate and rhythm without murmur. ABDOMEN: Soft. EXTREMITIES: Had no edema. SKIN: Warm and dry. NEUROLOGIC: Nonfocal. LYMPH: No adenopathy. MUSCULOSKELETAL: No joint effusion. RADIOLOGICAL DATA: Her ECG on admission showed a sinus rhythm. There was no significant ST or T-wave change. On the monitor, the patient is noted to have frequent PVCs including short runs of ventricular bigeminy. Her lab work included a chest x-ray done yesterday after surgery that showed normal heart size, evidence of a hiatal hernia, some atelectasis. She had a CT scan of the chest using a PE protocol after surgery that showed the following: There was no evidence of PE, no aneurysmal dilatation of the ascending aorta, some atelectasis. LABORATORY DATA: Sodium 143, potassium 4.0, creatinine 0.9. Liver function studies were normal. Magnesium 1.9, troponin 0.06. BNP 243. TSH 1.5. White blood cell count 9.9, hemoglobin 13.8. IMPRESSION AND RECOMMENDATIONS: 1. Premature ventricular contractions. Suspect related to beta agonist. I would consider switching to Xopenex. 2. Atelectasis post-surgery. The patient is hypoxic. 3. Hyperlipidemia. The patient is on a statin drug. 4. Previous repair of a hiatal hernia. <ELECTRONICALLY SIGNED> By: Du Brumfield MD, FACC 06/05/19 1110 [id number] 26Datena Brumfield MD, FACC /nt
--- NOTE | 2019-06-05 14:03 | NUR ---
PATIENT UP IN ROOM NOW ON BIPAP. VERY STEADY ON FEET. COOPERATING WITH BIPAP AND HEATED HIGH FLOW. REMAINS ON FULL LIQUIDS.
--- NOTE | 2019-06-05 17:54 | NUR ---
PATIENT REMAINS ON O2 ALERT AND ORIENTED INTAKE LIMITED. UP TO CHAIR AND COMMODE WITOUT DISTRESS.
[2019-06-06] VITALS (24 sets, daily range): BP systolic 95–145; BP diastolic 51–88
[2019-06-06 03:29] LABS: ABSOLUTE LYMPHOCYTES 1.4 thou/uL (0.8-5.3); ABSOLUTE MONOCYTES 0.5 thou/uL (0.0-1.2); ABSOLUTE NEUTROPHILS 3.9 thou/uL (1.6-8.1); BASOPHILS 0.5 %; EOSINOPHILS 0.2 %; HEMATOCRIT 34.6 % (37.0-47.0); HEMOGLOBIN 11.3 gm/dL (12.0-15.0); LYMPHOCYTES 23.4 %; MCH 27.8 pg (26.0-34.0); MCHC 32.7 g/dL (28.0-37.0); MCV 84.9 fL (80.0-100.0); MONOCYTES 8.5 %; MPV 8.2 fl. (7.2-11.1); NUCLEATED RBCS 0 /100WBC; PLATELET COUNT* 234 thou/uL (150-400); POLYS 67.4 %; RBC 4.07 mil/uL (4.20-5.00); WBC 5.8 thou/uL (4.0-11.0)
[2019-06-06 03:33] LABS: CALCIUM 8.2 mg/dL (8.5-10.1); CREATININE 1.2 mg/dL (0.6-1.3); POTASSIUM 3.4 mmol/L (3.5-5.1)
--- NOTE | 2019-06-06 04:32 | NUR ---
ASSUMED CARE AT 1900H, ON HIFLOW NC AT 75% AND TOLERATED.ON BIPAP DURING BEDTIME AND NO DISTRESS NOTED.PT SOMETIMES ANXIOUS;MEDS GIVEN AND LET PT VERBALIZED HER FEELINGS.NO BLEEDING NOTED.PT USED CAMMODE WITH NO DIZZINESS AND SOB NOTED.CONTINUE MONITORING AND TOWARD GOALS.CALL LIGHT WITHIN REACH.
[2019-06-06 09:11] LABS: BE 1.4 mmol/L (-2 to +3); PCO2 29.4 mmHg (35.0-45.0); PO2 72.8 mmHg (75.0-100.0); pH 7.519 (7.340-7.450)
--- NOTE | 2019-06-06 11:00 | NUR ---
ICU ROUNDS: REMAINS IN ICU. ON BIPAP LAST NIGHT BUT TRY TO WEAN O2 TODAY. UP WITH THERAPY. DID WELL. UP IN CHAIR AT THIS TIME.
--- NOTE | 2019-06-06 16:30 | 2DMMODE ---
[place] [address] 2 D/M-MODE ECHOCARDIOGRAM Name: CHARANJIT WHITNEY Room: [address] ADM IN .R.#: [id number] Admission: 06/02/19 Attend Phys: Conrad Lima MD Discharge: Date of : 48 Date of Service: 06/06/19 1630 Report #: [id number] THIS REPORT FOR: //name// APPROVED REPORT Study performed: 06/06/2019 13:41:45 EXAM: Comprehensive 2D, Doppler, and color-flow Echocardiogram Patient Location: Bedside BSA: 1.98 HR: 68 bpm BP: 112/65 mmHg Other Information Study Quality: Good Indications Abnormal ECG 2D Dimensions IVSd: 13.84 (7-11mm) LVOT Diam: 26.15 (18-24mm) LVDd: 44.01 mm PWd: 9.54 (7-11mm) Ascending Ao: 38.69 (22-36mm) LVDs: 33.74 (25-40mm) Aortic Root: 30.17 mm Aortic Valve AoV Peak Alon.: 1.31 m/s AO Peak Gr.: 6.86 mmHg LVOT Max P.68 mmHg AO Mean Gr.: 3.61 mmHg LVOT Mean P.57 mmHg LVOT Max V: 1.19 m/s AO V2 VTI: 23.23 cm LVOT Mean V: 0.73 m/s BETY (VTI): 4.81 cm2 LVOT V1 VTI: 20.79 cm Mitral Valve E/A Ratio: 0.65 MV Decel. Time: 281.78 ms MV E Max Alon.: 0.41 m/s MV PHT: 81.72 ms MVA (PHT): 2.69 cm2 TDI E/Lateral E': 4.56 E/Medial E': 4.10 Medial E' Alon.: 0.10 m/[place] [address] 2 D/M-MODE ECHOCARDIOGRAM Name: CHARANJIT WHITNEY BRENT Room: [address] IN ..#: [id number] Admission: 06/02/19 Attend Phys: Conrad Lima MD Discharge: Date of : 48 Date of Service: 06/06/19 1630 Report #: [id number] Lateral E' Alon.: 0.09 m/s Pulmonary Valve PV Peak Alon.: 0.77 m/s PV Peak Gr.: 2.35 mmHg Tricuspid Valve RAP Estimate: 5.00 mmHg TR Peak Gr.: 19.02 mmHg RVSP: 24.02 mmHg PA Pressure: 24.02 mmHg Left Ventricle The left ventricle is normal size. There is normal LV segmental wall motion. There is normal left ventricular wall thickness. Left ventricular systolic function is normal. LVEF is 65-70%. Grade I - abnormal relaxation pattern. Right Ventricle The right ventricle is normal size. The right ventricular systolic function is normal. Atria Left atrium is mildly dilated. The right atrium size is normal. Aortic Valve Aortic valve leaflets are mildly thickened. No aortic regurgitation is present. There is no aortic valvular stenosis. Mitral Valve The mitral valve is normal in structure. Moderate mitral regurgitation. No evidence of mitral valve stenosis. There is mild mitral valve prolapse. Tricuspid Valve The tricuspid valve is normal in structure. Trace tricuspid regurgitation. Pulmonic Valve The pulmonary valve is normal in structure. There is no pulmonic valvular regurgitation. Great Vessels The aortic root is normal in size. IVC is normal in size and collapses >50% with [place] [address] 2 D/M-MODE ECHOCARDIOGRAM Name: STEWART WHITNEYBETZY KENNEDY Room: [address] IN [facility]#: [id number] Admission: 06/02/19 Attend Phys: Conrad Lima MD Discharge: Date of : 48 Date of Service: 06/06/19 1630 Report #: [id number] There is no pericardial effusion. <Conclusion> The left ventricle is normal size. There is normal left ventricular wall thickness. Left ventricular systolic function is normal. LVEF is 65-70%. Grade I - abnormal relaxation pattern. Left atrium is mildly dilated. Aortic valve leaflets are mildly thickened. There is no aortic valvular stenosis. There is mild mitral valve prolapse. Moderate mitral regurgitation. Trace tricuspid regurgitation. IVC is normal in size and collapses >50% with inspiration. <ELECTRONICALLY SIGNED> By: Logan Best MD, FACC 06/06/19 163 [id number] Logan Best MD, FACC /INF
--- NOTE | 2019-06-06 19:40 | NUR ---
I ASSUMED CARE OF THE PATIENT AT 0700. SHE IS ALERT AND ORIENTED X4 AND IS UP WITH STAND BY ASSIST. BED IS IN THE LOW LOCKED POSITION AND CALL LIGHT IS IN REACH. HOURLY ROUNDING WAS COMPLETED AND PATIENT NEEDS WERE MET. PAIN IS MANAGED WITH PRN MEDS. SHE DOESN'T SLEEP WELL AND IS HOPING FOR A GOOD NIGHTS SLEEP. SHE HAD A BM TODAY AND AMBULATED A LONG WAY. SHE WAS WEANED FROM THE BIPAP DOWN TO HIGH FLOW COVERAGE. SHE IS PROGRESSING TOWARDS HER GOALS. WILL CONTINUE TO MONITOR.
[2019-06-07] VITALS (9 sets, daily range): BP systolic 104–126; BP diastolic 40–78
--- NOTE | 2019-06-07 06:08 | NUR ---
VITALS STABLE, AFEBRILE. PT ON BIPAP THROUGH THE NIGHT, ABLE TO TITRATE FIO2 DOWN FROM 50% TO 35%. LOOSE STOOLS X3, 400 CC UOP. OTHERWISE UNEVENTFUL NIGHT. DENIES PAIN, ANXIETY RELIEVED BY MEDICATION. CALL LIGHT WITHIN REACH. BED ALARM ON.
--- NOTE | 2019-06-07 10:05 | CON ---
[address] [address] CONSULTATION Name: CHELOCHARANJIT BRENT Room: [address] IN .R.#: [id number] Admission: 06/02/19 Attend Phys: Conrad Lima MD Discharge: Date of : 48 Report #: [id number] THIS REPORT FOR: //name// CC: Cinthia Lima REASON FOR CONSULTATION: Acute respiratory failure and respiratory distress. REFERRING PHYSICIAN: Dr. Padgett. HISTORY OF PRESENT ILLNESS: This is a 68-year-old female patient who was admitted to this facility and underwent a procedure on 06/01/2019. She had laparoscopic repair of paraesophageal hernia with fundoplication and laparoscopic repair of umbilical hernia with mesh. POSTOPERATIVE COURSE: Apparently, she was progressing well; however, reviewing her record indicated she was requiring initially 5 L oxygen and her O2 needs worsened overnight. This morning, they were unable to oxygenate her even on heated high-flow nasal cannula. She was rushed to the CTA chest to rule out pulmonary embolus and brought into the ICU. During my visit in the ICU, she was on BiPAP. She was on 06/24. She was putting around 500-600 tidal volume. She was on 100% oxygen. Her O2 saturation on the monitor was 96-97%. The patient was able to talk through the mask. She told me she never had a lung disease, never smoked. No history of asthma, never been on oxygen or inhalers at home. She did not feel short of breath. She was on diet yesterday. She denied any history of dysphagia, difficulty swallowing, choking with meals, or any history to suggest aspiration. She denied any chest pain or palpitation, but she reported her abdomen is distended, although she is passing gases and she has no nausea or vomiting. She denies any lower extremity edema. She denies any congestive heart failure history. PAST MEDICAL HISTORY: History of gastroesophageal reflux disease with recurrent symptoms. History of hypothyroidism, hyperlipidemia, and anxiety. PAST SURGICAL HISTORY: Abdominal hysterectomy and cholecystectomy. FAMILY HISTORY: Positive for breast cancer. SOCIAL HISTORY: Never smoked. Does not drink alcohol. Does not abuse drugs. REVIEW OF SYSTEMS: All systems reviewed with the patient and negatives as mentioned above. ALLERGIES: SULFA and CODEINE. PHYSICAL EXAMINATION: VITAL SIGNS: During my visit, she was on 100% [place] [address] CONSULTATION Name: CHARANJIT WHITNEY BRENT Room: [address]#: [id number] Admission: 06/02/19 Attend Phys: Conrad Lima MD Discharge: Date of : 48 Report #: [id number] saturation 96%. She was breathing around 20 times a minute. No obvious distress, tolerating the BiPAP. HEENT: Head normocephalic, atraumatic. Pupils reactive to light. Not pale or jaundiced. External ear looks normal. Oral cavity not examined. I did not take the BiPAP mask off. NECK: Full range of movement. Trachea central. No increased jugular venous pressure. CHEST: Diminished air movement bilaterally, some rhonchi at the bases. I did not hear wheezes. HEART: S1, S2, no murmur. ABDOMEN: Distended, post-surgical, clean wounds. Tympanic to percussion. She is guarding. No tenderness. EXTREMITIES: Lower extremities: No edema. No calf tenderness. No signs of DVT. SKIN: No rash. PSYCHIATRIC: Mood and affect slightly anxious. NEUROLOGIC: Moving 4 extremities. Awake, alert. LABORATORY DATA: Her ABGs was done on heated high flow at 80% on 15 L per minute 7.58/26/38. Her creatinine is 0.7 with a potassium of 4.3, sodium 143, and her phosphorus was low at 2.2. Her initial chest x-ray on the 06/03, today, showed low lung volumes and basilar atelectasis; however, I did review the CTA chest with the radiologist. There is no PE, but there is significant atelectasis bilaterally, more on the right than the left. IMPRESSION: 1. Acute severe hypoxic respiratory failure. 2. Pulmonary infiltrate. 3. Atelectasis. 4. Respiratory distress. 5. Status post surgery. She underwent surgery on 06/01/2019. She had laparoscopic repair of paraesophageal hernia, fundoplication, and laparoscopic repair of umbilical hernia. Reason for the patient's acute sudden deterioration is related to atelectasis, but also pneumonia could not be ruled out. There is no history to suggest aspiration at this point, although that is a consideration. I am going to start her on antibiotics. She will be on scheduled nebulization treatment. We will give her 2 doses of steroids. I recommend for her to remain n.p.o. until we are able to wean oxygen down and if she can come off to binasal cannula with a reasonable amount without increased work of breathing, as long as she is maintaining her O2 saturation in a safe range, then we can start feeding her. We need to closely monitor for signs of aspiration. Meanwhile, we need to continue to monitor her chest x-ray and continue to monitor her blood gas. [address] [place] [address] CONSULTATION Name: CHARANJIT WHITNEY Room: [address] IN [facility]#: [id number] Admission: 06/02/19 Attend Phys: Conrad Lima MD Discharge: Date of : 48 Report #: [id number] Given her high O2 needs, she needs to be monitored in the ICU closely. Discussed with RN and RT. Critical care time 37 minutes. <ELECTRONICALLY SIGNED> By: Liam Patten MD 06/07/19 1005 0936 1001Ddipesh Patten MD /nt
--- NOTE | 2019-06-07 13:32 | NUR ---
PT TRANSFERED TO ROOM 314. REPORT GIVEN TO DONNA BOX. ALL PT BELONGINGS SENT WITH PT.
--- NOTE | 2019-06-07 17:23 | NUR ---
PT TRANSFERRED TO ROOM 314. ALERT AND ORIENTED X4. PT IS ON 5L PER NC, WILL TITRATE IF PT TOLERATES. PT IS UP STANDBY ASSIST TO BATHROOM. IV ABX GIVEN ORDERED. SOFT DIET ORDERED FOR DINNER PER DR MARTINEZ. LAP SITES INTACT. PT DENIES NEED FOR PAIN MEDICATION AND DENIES N/V. VSS. SEE ASSESSMENT AND VITALS FOR OTHER DETAILS. CALL LIGHT WITHIN REACH, WILL CONTINUE PLAN OF CARE
--- NOTE | 2019-06-07 23:03 | NUR ---
PATIENT REFUSING BIPAP FOR THE NIGHT STATING IT MAKES HER CLAUSTROPHOBIC.
--- NOTE | 2019-06-08 05:05 | NUR ---
PT ALERT AND ORIENTED. UP AD LORENA. VSS ON 2L NC. REFUSED BIPAP THIS SHIFT, SAYS TOLD HER TO WEAN OFF. PT SLEPT HALF OF SHIFT. XANAX GFIVNE PER PT'S REQUEST. PT DENIES PAIN, N/V. ABX INFUSED AAS ORDERED. UP AD LORENA. WILL CONTINUE TO MONITOR.
[2019-06-08 08:44] VITALS: BP 121/70
--- NOTE | 2019-06-08 10:39 | NUR ---
ASSUMED CARE OF PT AROUND 0730 THIS AM. REFER TO ASSESSMENT. WEANED PT TO RA THIS AM AT SHIFT CHANGE. MONITORED OXYGEN SATURATION AND PT REMAINED STABLE AT 95% ON RA. NO C/O SOA. PULMONOLOGISTS ROUNDED THIS AM AND REPORTS OK WITH DISCHARGE HOME. NO OTHER CONCERNS AT THIS TIME. CLWR. WCTM.
[2019-06-08] MEDS ORDERED: ZOFRAN4 MG PO (12:16)
[2019-06-08] MEDS ORDERED: NORCO 5-325 TA1 EAC1 PO (12:17)
[2019-06-08 12:36] VITALS: BP 121/70
[2019-06-08] MEDS ORDERED: AUGMENTIN 875-1 EACH PO (12:37)
--- NOTE | 2019-06-08 13:30 | NUR ---
PT GIVEN DC INSTRUCTIONS AND VERBALIZES UNDERSTANDING. PT GIVEN THREE SCRIPTS AND TWO OF THEM CALLED INTO PT'S PHARMACY. NO OTHER CONCERNS AT THIS TIME.
--- NOTE | 2019-06-08 16:06 | NUR ---
NOTIFIED THAT PT HAD POSITIVE C-DIFF RESULTS. PHYSICIAN AND SURGEON NOTIFIED. CALLED NEW PRESCRIPTION TO PT'S PHARMACY. CALLED AND NOTIFIED PT WITH INSTRUCTIONS. NO OTHER CONCERNS AT THIS TIME.
== END 2019-06-08 13:45 | disposition home or self-care (01) | DRG 326 ==
LOC: M.SUR → M.TBA 05:57 → M.SUR 09:57 → M.TBA 10:17 → M.SUR 10:43 → EDSTATUS 12:42 → M.TBA 12:44 → M.ORTHSURG 14:00 → M.TBA 16:06 → M.3W 06-02 17:06 → M.ICU 06-02 17:06 → M.ORTHSURG 06-02 17:06 → M.ICU 06-03 09:15 → M.3W 06-07 13:30
PROVIDERS: Internal Medicine; Internal Medicine Pulmonary Disease; Surgery; ADMIT Surgery
DX: K44.9 Diaphragmatic hernia without obstruction or gangrene (principal); J18.9 Pneumonia, unspecified organism; J96.01 Acute respiratory failure with hypoxia; K42.9 Umbilical hernia without obstruction or gangrene; K21.9 Gastro-esophageal reflux disease without esophagitis; E03.9 Hypothyroidism, unspecified; E78.5 Hyperlipidemia, unspecified; F41.9 Anxiety disorder, unspecified; I49.3 Ventricular premature depolarization; I34.1 Nonrheumatic mitral (valve) prolapse; Z88.6 Allergy status to analgesic agent; Z88.2 Allergy status to sulfonamides; Z80.3 Family history of malignant neoplasm of breast; Z90.710 Acquired absence of both cervix and uterus; Z90.49 Acquired absence of other specified parts of digestive tract; Z82.49 Family history of ischemic heart disease and other diseases of the circulatory system; Z86.718 Personal history of other venous thrombosis and embolism

== ENCOUNTER 2020-03-31 10:07 | Inpatient (IN) | payer OTHER ==
[~2020-03-31] VITALS: Ht 170.2 cm; Wt 83.1 kg
[2020-03-31 10:07] VITALS: BP 136/72
[~2020-03-31 10:07] MED LIST changes: +AUGMENTIN 875-1 EACH PO; +NORCO 5-325 TA1 EAC1 PO; +ZOFRAN4 MG PO
[2020-03-31] MEDS ORDERED: EFFEXOR XR37.5 MG PO (10:18)
[2020-03-31 10:43] LABS: ABSOLUTE LYMPHOCYTES 1.8 thou/uL (0.8-5.3); ABSOLUTE MONOCYTES 0.3 thou/uL (0.0-1.2); ABSOLUTE NEUTROPHILS 3.2 thou/uL (1.6-8.1); BASOPHILS 0.3 %; HEMATOCRIT 41.8 % (37.0-47.0); HEMOGLOBIN 14.2 gm/dL (12.0-15.0); MCH 29.2 pg (26.0-34.0); MONOCYTES 6.4 %; MPV 8.1 fl. (7.2-11.1); NUCLEATED RBCS 0 /100WBC; PLATELET COUNT* 245 thou/uL (150-400); POLYS 60.3 %; RBC 4.85 mil/uL (4.20-5.00); RDW-CV 14.9 % (10.5-14.5); WBC 5.4 thou/uL (4.0-11.0)
[2020-03-31 10:46] LABS: CALCIUM 8.2 mg/dL (8.5-10.1); CREATININE 0.9 mg/dL (0.6-1.3); POTASSIUM 3.9 mmol/L (3.5-5.1)
[2020-03-31 10:55] LABS: APTT 23.6 Seconds (25.0-31.3); PROTIME 10.1 Seconds (9.20-11.50)
[2020-03-31 11:04] LABS: ALBUMIN 3.4 g/dL (3.4-5.0); TOTAL BILIRUBIN 0.5 mg/dL (<0.1-1.0); TOTAL PROTEIN 6.8 g/dL (6.4-8.2)
[2020-03-31 13:14] VITALS: BP 134/79
[2020-03-31 14:03] LABS: CHOLESTEROL 211 mg/dL (<200); HDL CHOLESTEROL 42 mg/dL (>40); LDL CHOLESTEROL 132 mg/dL (<100); SERUM ASSESSMENT Clear; TRIGLYCERIDE 185 mg/dL (<150); VLDL 37 mg/dL (<40)
[2020-03-31 15:58] VITALS: BP 141/88
[2020-03-31 19:40] VITALS: BP 145/98
[2020-03-31 22:34] LABS: URINE BILIRUBIN NEGATIVE (Negative); URINE BLOOD 3+ (Negative); URINE CLARITY SL CLOUDY; URINE COLOR YELLOW; URINE GLUCOSE-RANDOM NEGATIVE (Negative); URINE KETONES NEGATIVE (Negative); URINE NITRITE-REFLEX NEGATIVE (Negative); URINE PROTEIN NEGATIVE (Negative); URINE SPECIFIC GRAVITY <= 1.005 (1.005-1.030); URINE UROBILINOGEN 0.2 E.U./dl (0.2-1.0)
[2020-03-31 22:35] LABS: URINE LEUKOCYTES-REFLEX 3+ (Negative)
[2020-03-31 22:44] LABS: MUCUS None Seen strn/LPF (None Seen); SQUAMOUS 4-10 Moderate /LPF (0-3)
[2020-03-31 22:45] LABS: URINE RBC 3-10 Few /HPF (0-2); URINE WBC-REFLEX >25 Many /HPF (0-5); WBC CLUMPS Few (None Seen)
[2020-03-31 22:46] LABS: BACTERIA-REFLEX 1-9 Few /HPF (None Seen); CASTS None Seen /LPF (None Seen); CRYSTALS None Seen /LPF (None Seen)
[2020-04-01] VITALS: BP 135/79
[2020-04-01 04:00] VITALS: BP 124/77
[2020-04-01 05:37] LABS: GLYCOHEMOGLOBIN (HGB A1C) 5.5 % (4.8-5.6)
[2020-04-01 08:00] VITALS: BP 136/85
--- NOTE | 2020-04-01 14:18 | EKG ---
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 : 1950 Requested By: Les Kennedy Order Number: [id number] MD: Selvin Aguila Measurements Intervals [place] Rate: 85 P: 52 LA: 182 QRS: 2 QRSD: 87 T: 119 QT: 438 QTc: 521 Interpretive Statements Sinus rhythm Paired ventricular premature complexes Nonspecific T abnrm, anterolateral leads Compared to ECG 04/24/2019 04:37:43 Ventricular premature complex(es) now present Electronically Signed On 04-01-2020 14:17:53 CDT by Selvin Aguila [email or web address] <ELECTRONICALLY SIGNED> By: Bronson Aguila MD, [facility] 04/01/20 1417 1012 1012 Bronson Aguila MD, [facility] /EPI
[2020-04-01 19:30] VITALS: BP 102/73
[2020-04-01 21:31] LABS: URINE BILIRUBIN NEGATIVE (Negative); URINE BLOOD 1+ (Negative); URINE CLARITY CLEAR; URINE COLOR YELLOW; URINE GLUCOSE-RANDOM NEGATIVE (Negative); URINE KETONES NEGATIVE (Negative); URINE LEUKOCYTES 3+ (Negative); URINE NITRITE NEGATIVE (Negative); URINE PROTEIN NEGATIVE (Negative); URINE UROBILINOGEN 0.2 E.U./dl (0.2-1.0)
[2020-04-01 21:44] LABS: CASTS None Seen /LPF (None Seen); SQUAMOUS 0-3 Few /LPF (0-3)
[2020-04-01 21:45] LABS: BACTERIA >30 Many /HPF (None Seen); CRYSTALS None Seen /LPF (None Seen); URINE RBC 0-2 Rare /HPF (0-2); URINE WBC >25 Many /HPF (0-5)
[2020-04-02] VITALS: BP 93/71
[2020-04-02 04:00] VITALS: BP 121/85
[2020-04-02 08:00] VITALS: BP 135/77
[2020-04-02 15:27] VITALS: BP 140/86
--- NOTE | 2020-04-02 16:30 | 2DMMODE ---
[place] [address] 2 D/M-MODE ECHOCARDIOGRAM Name: CHELOCHARANJIT JO Room: [address] IN [facility]#: [id number] Admission: 03/31/20 Attend Phys: Noelle Hammer Discharge: Date of : 48 Date of Service: 04/02/20 1630 Report #: [id number] THIS REPORT FOR: cc: Cinthia Weinberg MD, Karmel MD Holkins,Oscar Brown MD [facility] ~ APPROVED REPORT Study performed: 04/02/2020 11:53:25 EXAM: Comprehensive 2D, Doppler, and color-flow Echocardiogram Patient Location: In-Patient Room #: [facility] Status: routine BSA: 1.95 HR: 66 bpm BP: 135/77 mmHg Rhythm: NSR Other Information Study Quality: Good Indications Mitral Valve Prolapse 2D Dimensions IVSd: 11.25 (7-11mm) LVOT Diam: 23.28 (18-24mm) LVDd: 64.43 mm PWd: 10.75 (7-11mm) Ascending Ao: 39.67 (22-36mm) LVDs: 36.66 (25-40mm) Aortic Root: 35.20 mm Volumes Left Atrial Volume (Systole) LA ESV Index: 44.90 mL/m2 Aortic Valve AoV Peak Alon.: 1.39 m/s AO Peak Gr.: 7.77 mmHg LVOT Max P.04 mmHg AO Mean Gr.: 3.69 mmHg LVOT Mean P.95 mmHg LVOT Max V: 1.33 m/s AO V2 VTI: 22.08 cm LVOT Mean V: 0.77 m/s BETY (VTI): 4.14 cm2 LVOT V1 VTI: 21.47 [place] [address] 2 D/M-MODE ECHOCARDIOGRAM Name: CHARANJIT WHITNEY Room: [address] IN ..#: [id number] Admission: 03/31/20 Attend Phys: Noelle Hammer Discharge: Date of : 48 Date of Service: 04/02/20 1630 Report #: [id number] Mitral Valve E/A Ratio: 0.69 MV Decel. Time: 297.90 ms MV E Max Alno.: 0.50 m/s MV PHT: 86.39 ms MVA (PHT): 2.55 cm2 TDI E/Lateral E': 5.00 E/Medial E': 6.25 Medial E' Alon.: 0.08 m/s Lateral E' Alon.: 0.10 m/s Pulmonary Valve PV Peak Alon.: 0.90 m/s PV Peak Gr.: 3.21 mmHg Tricuspid Valve RAP Estimate: 5.00 mmHg TR Peak Gr.: 22.03 mmHg RVSP: 27.00 mmHg PA Pressure: 27.00 mmHg Left Ventricle Left ventricle is at the upper limits of normal. There is normal LV segmental wall motion. There is normal left ventricular wall thickness. Left ventricular systolic function is normal. The left ventricular ejection fraction is within the normal range. LVEF is 55%. Grade I - abnormal relaxation pattern. Right Ventricle The right ventricle is normal size. The right ventricular systolic function is normal. Atria Left atrium is mildly dilated. The right atrium size is normal. Aortic Valve Mild aortic valve sclerosis. No aortic regurgitation is present. There is no aortic valvular stenosis. Mitral Valve The mitral valve is normal in structure with mild prolapse of the anterior leaflet Mild to moderate mitral regurgitation. No evidence of mitral valve stenosis. There is mitral valve prolapse. Tricuspid Valve The tricuspid valve is [place] [address] 2 D/M-MODE ECHOCARDIOGRAM Name: CHARANJIT WHITNEY Room: [address] IN [facility]#: [id number] Admission: 03/31/20 Attend Phys: Noelle Hammer Discharge: Date of : 48 Date of Service: 04/02/20 1630 Report #: [id number] regurgitation. No pulmonary hypertension. Pulmonic Valve The pulmonary valve is normal in structure. There is no pulmonic valvular regurgitation. Great Vessels The aortic root is normal in size. IVC is normal in size and collapses >50% with inspiration. Pericardium There is no pericardial effusion. <Conclusion> Left ventricle is at the upper limits of normal. There is normal left ventricular wall thickness. Left ventricular systolic function is normal. The left ventricular ejection fraction is within the normal range. Grade I - abnormal relaxation pattern. LVEF is 55%. The right ventricle is normal size. Left atrium is mildly dilated. The right atrium size is normal. Mild aortic valve sclerosis. No aortic regurgitation is present. There is no aortic valvular stenosis. The mitral valve is normal in structure with mild prolapse of the anterior leaflet Mild to moderate mitral regurgitation. No evidence of mitral valve stenosis. The tricuspid valve is normal in structure. IVC is normal in size and collapses >50% with inspiration. There is no pericardial effusion. There is normal LV segmental wall motion. <ELECTRONICALLY SIGNED> By: Oscar Artis MD, FACC 04/02/201629 29 29 Oscar Artis MD, FACC /INF
[2020-04-02 18:59] VITALS: BP 168/94
[2020-04-02 20:00] VITALS: BP 158/94
[2020-04-03] VITALS (7 sets, daily range): BP systolic 123–157; BP diastolic 65–85
[2020-04-03] MEDS ORDERED: ZYPREXA 5 MG TAB5 M1 PO (16:16)
--- NOTE | 2020-04-03 16:31 | CARDNUC ---
[place] [address] CARDIAC NUCLEAR IMAGING REPORT Name: CHARANJIT WHITNEY BRENT Room: [address] IN [facility]#: [id number] Admission: 03/31/20 Attend Phys: Noelle Hammer Discharge: Date of : 48 Date of Service: 04/03/20 1631 Report #: [id number] THIS REPORT FOR: cc: Cinthia Weinberg MD, Karmel MD Liston, Michael J. MD [facility] ~ APPROVED REPORT Imaging Protocol: Rest Tc-99m/Stress Tc-99m 1 day Study performed: 04/01/2020 14:34:00 Indication: NEAR SYNCOPE, DIZZINESS, AFIB. Patient Location: In-Patient Room #: 208 Stress Tech: Jelly Zendejas Stress Nurse: Tara Donald RN NM Tech:RAI Chin Ht: 5 ft 7 in Wt: 188 lbs BSA: 1.97 m2 BMI: 29.44 Medical History Medical History: NEAR SYNCOPE, VPC'S, APC'S, DIZZINESS, N/V, HX MITRAL VALVE PROLAPSE, DIAPHORESIS, AFIB. Medications: ATORVASTATIN. Allergies: SULFA, CODEINE. Cardiac Risk Factors: Age, Near syncope, VPC'S, APC'S, HX MITRAL VALVE PROLAPSE, AFIB. Previous Cardiac Procedures: NONE Pretest Chest Pain Characteristics: No chest pain Exercise History: Indeterminate Physical Disabilities: DIZZINESS, AFIB. Meds Held (24 hrs): NONE Resting Data Rest SPECT myocardial perfusion imaging was performed in supine position 30 minutes following the intravenous injection of 10.1 mCi of Tc-99m Sestamibi. Time of rest injection: 1315 Date: 04/02/2020 The images were gated to evaluate regional wall motion and calculate left ventricular ejection fraction. Administration Route: IV Administration Site: [place] [address] CARDIAC NUCLEAR IMAGING REPORT Name: CHARANJIT WHITNEY Room: [address] IN [facility]#: [id number] Admission: 03/31/20 Attend Phys: Noelle Hammer Discharge: Date of : 48 Date of Service: 04/03/20 1631 Report #: [id number] Pharmacologic Stress Pharmacologic stress test was performed by injecting Regadenoson 0.4 mg IV push over 10-15 seconds immediately followed by the intravenous injection of 30.0 mCi of Tc-99m Sestamibi. Time of stress injection: 1445 Date: 04/02/2020 Administration Route: IV Administration Site: Right Wrist Gated Stress SPECT was performed 40 minutes after stress injection. The images were gated to evaluate regional wall motion and calculate left ventricular ejection fraction. Prone imaging was performed. Stress Test Details Stress Test: Pharmacologic stress testing performed using 0.4 mg of regadenoson per 5 mL given IV over 10 seconds. Reason for pharmacologic stress test: DIZZINESS, AFIB.. HR Max Heart Rate (APMHR): 150 bpm Resting HR: 94 bpm Target HR (85% APMHR): 127 bpm Max HR Achieved: 136 bpm % of APMHR: 90 Recovery HR: 112 bpm BP Resting BP: 139/79 mmHg Max BP: 116/84 mmHg Recovery BP: 139/89 mmHg ECG Resting ECG: Sinus Rhythm Stress ECG: Sinus Tachycardia ST Change: None Arrhythmia: VPC's Recovery ECG: Sinus Rhythm Recovery ST Change: None Recovery Arrhythmia: VPC's Clinical Reason for Termination: Completed protocol Stress Symptoms: NONE VOICED. Exercise duration: 00 min 00 sec Exercise capacity: 1.00 METs The patient tolerated Lexiscan infusion without significant cardiac symptoms[place] [address] CARDIAC NUCLEAR IMAGING REPORT Name: CHARANJIT WHITNEY BRENT Room: [address]#: [id number] Admission: 03/31/20 Attend Phys: Noelle Hammer Discharge: Date of : 48 Date of Service: 04/03/20 1631 Report #: [id number] A 69 YEAR OLD FEMALE INPATIENT PRESENTED FOR A SITTING LEXISCAN R/T NEAR SYNCOPE, AFIB, DIZZINESS. TEST WELL TOLERATED. RECOVERY UNREMARKABLE. PATIENT WAS ESCORTED BY STAFF TO NUCLEAR MEDICINE FOR IMAGING. PATIENT WAS STABLE AND STATED SHE FELT GOOD AT THAT TIME. Stress ECG Conclusion The baseline twelve-lead EKG shows sinus rhythm without significant ST segment or T wave abnormalities. EKGs obtained during and post Lexiscan stress show sinus rhythm and sinus tachycardia with no significant ST segment changes when compared to baseline. The patient had unifocal premature ventricular contractions prior to during and post stress. Study Quality Study: Good Artifact: No artifact Study Data At rest, the left ventricular ejection fraction was 59%.. Post stress, the left ventricular ejection was 66%.. TID = 0.82. Perfusion Perfusion images obtained at rest and post Lexiscan stress show uniform uptake of the radioisotope throughout the myocardium. There were no defects to suggest infarct or ischemia. Wall Motion Normal left ventricular wall motion. Nuclear Conclusion ECG Findings: negative for ischemia Clinical Findings: negative for ischemia Nuclear Findings: negative for ischemia Exercise Capacity: not assessed Left Ventricular Function: normal Risk Study: low Perfusion images show no defect to suggest infarct or ischemia. Left ventricular systolic function appears normal on gated studies. This is a low risk study. <Conclusion> The baseline twelve-lead EKG shows sinus rhythm without significant ST segment or T wave abnormalities. EKGs obtained during and post Lexiscan stress show sinus rhythm and sinus tachycardia with [place] [address] CARDIAC NUCLEAR IMAGING REPORT Name: CHARANJIT WHITNEY BRENT Room: [address] IN [facility]#: [id number] Admission: 03/31/20 Attend Phys: Noelle Hammer Discharge: Date of : 48 Date of Service: 04/03/20 1631 Report #: [id number] segment changes when compared to baseline. The patient had unifocal premature ventricular contractions prior to during and post stress. <ELECTRONICALLY SIGNED> By: Logan Best MD, [facility] 04/03/201630 30 30 Logan Best MD, FACFide /INF
[2020-04-04] VITALS: BP 139/64
[2020-04-04 04:00] VITALS: BP 116/77
[2020-04-04 08:00] VITALS: BP 115/81
[2020-04-04 11:50] VITALS: BP 135/57
[2020-04-04 15:52] VITALS: BP 109/76
--- NOTE | 2020-04-12 18:46 | CON ---
[address] [address] CONSULTATION Name: CHARANJIT WHITNEY Room: [address] IN [facility]#: [id number] Admission: 03/31/20 Attend Phys: Roberta Odell Discharge: 04/04/20 Date of : 48 Report #: [id number] THIS REPORT FOR: //name// cc: Cinthia Weinberg MD, Karmel MD ~ THIS REPORT FOR: //name// CC: Cinthia Hammer DATE OF SERVICE: 04/02/2020 HISTORY OF PRESENT ILLNESS: This is a 69-year-old female patient who was evaluated by me because the patient had some dizziness, nausea, and vomiting and she was also seen by Cardiology. The symptoms are better. She was found to have urinary tract infection for which she is being treated. Dizziness was pretty severe. REVIEW OF SYSTEMS: Positive for longstanding depression and anxiety. She has a history of hypothyroidism. She had lightheadedness and dizziness. She related to eating some [place] food, but does not think that is the cause of her symptoms. She does have a history of mitral valve prolapse and some premature ventricular contraction. She said she had hematuria at one time. She is not complaining of any new cardiac or respiratory symptom associated with it. She does not have too much of the bladder symptom either, although she has urinary tract infection. She did have nausea and has no new musculoskeletal, constitutional, dermatological, hematological, throat, allergic symptom associated with present symptomatology. PAST MEDICAL HISTORY: Positive for hypothyroidism. FAMILY HISTORY: Unremarkable. SOCIAL HISTORY: She does not drink alcohol or smoke. PHYSICAL EXAMINATION: Indicate she is alert, responsive, and oriented. Speech looks intact. Able to follow simple and complex command. Cranial nerve examination 2-12 looks unremarkable. She has symmetrical strength, sensation, reflexes and tone in all 4 extremities. Plantar appear to be downgoing. There is no cerebellar sign. There is no papilledema. There is no meningeal sign. Her vision and hearing looks intact. Cardiac and respiratory examination is unremarkable. Blood pressure is 135/77, respirations 17, pulse is 68, and temperature is 98.8. Pulses are palpable. LABORATORY DATA: WBC count is 5.4. She did have a CT scan of the head, which does not show any acute changes. Carotid [place] [address] CONSULTATION Name: STEWART WHITNEYHLEEN BRENT Room: [address]#: [id number] Admission: 03/31/20 Attend Phys: Roberta Odell Discharge: 04/04/20 Date of : 48 Report #: [id number] IMPRESSION AND PLAN: The patient's symptoms may be related to urinary tract infection. She is very concerned about it. I will do an MRI and MRA to make sure there is no pathology there. If that is okay, then neurological pathology is unlikely and she mainly needs the management of her systemic problem at that time. We will look at the MRI and MRA. Thank you very much for this referral. <ELECTRONICALLY SIGNED> By: Lester Howell MD 04/12/20 1846 [id number] Howell MD /nt
--- NOTE | 2020-04-18 09:16 | CON ---
[address] [address] CONSULTATION Name: CHELOCHARANJIT BRENT Room: [address] IN [facility]#: [id number] Admission: 03/31/20 Attend Phys: Roberta Odell Discharge: 04/04/20 Date of : 48 Report #: [id number] THIS REPORT FOR: //name// cc: Cinthia Weinberg MD, Karmel MD ~ THIS REPORT FOR: //name// CC: Cinthia Hammer DATE OF SERVICE: 04/01/2020 CARDIOLOGY CONSULTATION HISTORY OF PRESENT ILLNESS: I was asked by Dr. Hammer to see this 69-year-old white female in Cardiology consultation for evaluation and treatment of an episode of near syncope. This lady has a history of mitral valve prolapse with moderate mitral insufficiency or mitral regurgitation. She also has a history of VPCs and APCs and hyperlipidemia. She is also hypothyroid and does have a history of anxiety. Before coming into the Emergency Room yesterday, she had had [place] food and it made her sick. She had multiple episodes of nausea and vomiting. There was some abdominal pain associated as well and then she had a near syncopal episode. Since then, she has felt fairly well, although she has quite a bit of dizziness that seems to be positional. She may have some degree of benign positional vertigo. She did not have any chest pain. She did not have shortness of breath, dyspnea on exertion, orthopnea, PND or edema. FAMILY HISTORY: She does have a family history of coronary artery disease. I believe her father had quadruple bypass surgery. She does not smoke. She does have hyperlipidemia or hypercholesterolemia, as previously mentioned. She does not have diabetes or high blood pressure. She has not had renal disease or peripheral vascular disease. She has not had carotid disease, TIAs or CVAs or claudication or open or nonhealing wounds. She has no other significant medical problems except as described in the history of present illness and past medical history. ALLERGIES: She is allergic to SULFA and CODEINE. MEDICATIONS: Include: 1. Alprazolam 0.5 mg t.i.d. p.r.n. anxiety. 2. Atorvastatin 40 mg daily. 3. Doxepin 100 mg daily at bedtime. 4. Levothyroxine [place] [address] CONSULTATION Name: CHARANJIT WHITNEY BRENT Room: [address]#: [id number] Admission: 03/31/20 Attend Phys: Roberta Odell Discharge: 04/04/20 Date of : 48 Report #: [id number] 5. Effexor 37.5 mg daily. SOCIAL HISTORY: She is . Does not smoke, drink or use illegal drugs. She is retired. REVIEW OF SYSTEMS: Negative for some 45 different complaints in 14-different system categories except as mentioned in the history of present illness and past medical history. PHYSICAL EXAMINATION: GENERAL: She presents as a well-developed, well-nourished white female, in no acute distress. VITAL SIGNS: Her pulse is 59 and regular, blood pressure is 124/77, respirations are 16 and regular, temperature is 97.7. HEENT: Her head is atraumatic. Eyes clear. NECK: Supple. There is no jugular venous distention or hepatojugular reflux. Thyroid is not enlarged. There is no adenopathy. SKIN: Warm and dry. Mucous membranes are moist. LUNGS: Clear to auscultation and percussion. HEART: Revealed normal first and second heart sound. There is soft S4. There is no S3. There are no murmurs, rubs, thrills, heaves or gallops. PMI is nondisplaced. Rhythm is regular, rate is approximately 60. ABDOMEN: Soft, flat and nontender. No palpable masses. No organomegaly. EXTREMITIES: Reveal no cyanosis, clubbing or edema. NEUROLOGIC: The patient mentated normally, talked normally, moved all extremities normally. LABORATORY DATA: Her EKG shows normal sinus rhythm. There are frequent VPCs as well as some APCs. There are nonspecific T-wave abnormalities. CT of the head was unremarkable. I believe it was done without contrast, however. Her chest x-ray showed no acute cardiopulmonary abnormality. A troponin was done x 3. They were all negative. Her BNP was 234. IMPRESSION: 1. 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 2. VPCs. 3. APCs. 4. Hyperlipidemia. 5. Hypothyroidism. 6. Anxiety. 7. Mitral valve prolapse. 8. Moderate mitral regurgitation. [address] [place] [address] CONSULTATION Name: CHARANJIT WHITNEY BRENT Room: [address] IN M.R.#: [id number] Admission: 03/31/20 Attend Phys: Noelle JoãoRey Boydgay Roberta Discharge: 04/04/20 Date of : 48 Report #: [id number] RECOMMENDATION: She has never had a stress test for her ventricular ectopy and she should have one. Additionally, she should have a repeat echo to reassess her mitral valve. She has not had one for nearly a year. She will also get a 14-day monitor as an outpatient to assess her ectopy and she should get carotid Dopplers for her near syncope. Thank you very much for asking me to see this patient. If any questions, please feel free to contact me. <ELECTRONICALLY SIGNED> By: Bronson Aguila MD, FACC 04/18/20 0916 [id number]. Selvin Aguila MD, FACC /nt
== END 2020-04-04 16:17 | DRG 307 ==
LOC: M.ERS 10:07 → M.2W 11:21 → M.TBA-ER 11:21 → M.2W 13:11
PROVIDERS: Family Medicine; ADMIT Internal Medicine; ATTEND Internal Medicine
DX: I34.0 Nonrheumatic mitral (valve) insufficiency (principal); F23 Brief psychotic disorder; I49.9 Cardiac arrhythmia, unspecified; E03.9 Hypothyroidism, unspecified; E78.5 Hyperlipidemia, unspecified; F41.9 Anxiety disorder, unspecified; I49.3 Ventricular premature depolarization; Z20.828 Contact with and (suspected) exposure to other viral communicable diseases; I34.1 Nonrheumatic mitral (valve) prolapse; I10 Essential (primary) hypertension; F32.9 Major depressive disorder, single episode, unspecified; Z90.710 Acquired absence of both cervix and uterus; Z90.49 Acquired absence of other specified parts of digestive tract; Z86.718 Personal history of other venous thrombosis and embolism; Z79.899 Other long term (current) drug therapy; Z88.5 Allergy status to narcotic agent; Z88.1 Allergy status to other antibiotic agents; Z88.2 Allergy status to sulfonamides